=== PATIENT | female | born 1985 | race Caucasian/White ===

== ENCOUNTER 2017-09-13 21:13 | Observation (INO) ==
[2017-09-13 22:04] LABS: Bilirubin,Urine Negative (Negative); Blood,Urine Negative (Negative); Clarity,Urine Clear (Clear); Color,Urine Yellow (Yellow); Glucose,Urine (UA) Normal (Normal); Ketones,Urine Negative (Negative); Leukocyte Esterase,Urine Negative (Negative); Nitrite,Urine Negative (Negative); Protein,Urine Negative (Neg-Trace); Specific Gravity,Urine 1.015 (1.010-1.025); Urobilinogen,Urine Normal (Normal)
[2017-09-13 22:12] LABS: Amphetamine Screen,Urine Negative ng/mL (Cutoff=1000); Barbiturate Screen,Urine Negative ng/mL (Cutoff=200); Benzodiazepines Screen,Urine Negative ng/mL (Cutoff=200); Cannabinoid Screen,Urine Negative ng/mL (Cutoff = 50); Cocaine Screen,Urine Negative ng/mL (Cutoff= 300); Opiate Screen,Urine Negative ng/mL (Cutoff=300); Phencyclidine Screen,Urine Negative ng/mL (Cutoff=25)
[2017-09-13] MEDS ORDERED: Betamethasone Acet/SodPhos 6 MG/ML MDV IM SCH (22:15)
[2017-09-13 22:29] LABS: Basophils % 0.2 %; Eosinophils # 0.1 K/mcL (0.0-0.6); Hematocrit 35.8 % (35.3-44.9); Hemoglobin 12.3 g/dL (11.5-15.4); Immature Granulocytes % 0.9 % (0-4); Lymphocytes # 2.9 K/mcL (0.6-4.6); Lymphocytes % 22.9 %; Mean Corpuscular HGB Conc 34.4 g/dL (31.6-35.5); Mean Corpuscular Hemoglobin 30.3 pg (28.0-33.3); Mean Corpuscular Volume 88.2 fL (83.0-100.0); Mean Platelet Volume 11.2 fL (9.4-12.4); Monocytes # 0.9 K/mcL (0.0-1.3); Monocytes % 6.7 %; Neutrophils # 8.7 K/mcL (1.6-8.9); Platelet Count 223 K/mcL (140-400); Red Blood Count 4.06 M/mcL (3.82-4.97); Red Cell Distribution Width 13.2 % (11.5-14.5); Segmented Neutrophils % 68.3 %
--- NOTE | 2017-09-13 22:44 | OB/GYN Progress Note ---
Date of Encounter: 09/14/17 Time of Encounter: 22:38 - Assessment and Plan (1) 32 weeks gestation of Current Visit: Yes Status: Acute Continue PNC as scheduled with Dr. Dominique labor precautions given Discharge home (2) Hypertension affecting in third trimester Current Visit: Yes Status: Acute Elevated BP parameters given PIH work up WNL S/sx of pre-eclampsia discussed. Return next week for nurse visit for BP check. Subjective - Subjective Principal diagnosis: PIH eval Interval history: Ms. Alvarez is a 31-year-old at 32 weeks 0 days gestation who presents from home with c/o elevated BP from drug store machine and "not feeling right." She states her BP was 140/83 earlier in the day and then after she picked up her daughter it was 138/63. She reports good fm and denies ctx, lof, vb. Antepartum ROS: movement normal, other (feeling ill), no loss of fluid, no vaginal bleeding, no contractions Objective - Vital Signs Vital Signs: Intake and Output 09/13/17 09/13/17 09/13/17 07:59 15:59 23:59 Other: Weight 123.9 kg Patient Weight 09/13/17 23:59 Weight 123.9 kg - Exam FHR: category 1 Auscultation: bilateral: normal Abdomen: Present: normal appearance, soft, gravid Uterus: Present: normal, firm - Labs Labs: Abnormal lab results WBC 12.7 K/mcL (4.3-11.1) H 09/13/17 22:20
[2017-09-13 22:56] LABS: Alanine Aminotransferase 9 Units/L (7-52); Aspartate Amino Transferase 11 Units/L (13-39); BUN/Creatinine Ratio 19 (6-26); Blood Urea Nitrogen 11 mg/dL (6-20); Lactate Dehydrogenase 152 Units/L (140-271); eGFR For Non-African Americans > 60 (> 60)
[2017-09-14] LABS: Creatinine,Urine 24 mg/dL
== END 2017-09-14 00:22 | disposition home or self-care (01) ==
LOC: 1NENULAB
PROVIDERS: ADMIT Advanced Practice Midwife; ATTEND Advanced Practice Midwife

== ENCOUNTER 2017-09-14 23:42 | Observation (INO) ==
[2017-09-14] MEDS ORDERED: Betamethasone Acet/SodPhos 6 MG/ML MDV IM SCH (23:45)
--- NOTE | 2017-09-15 00:08 | OB/GYN Progress Note ---
Date of Encounter: 09/15/17 Time of Encounter: 00:07 - Assessment and Plan (1) 32 weeks gestation of Current Visit: No Status: Acute (2) Hypertension affecting in third trimester Current Visit: No Status: Acute Here for second betamethasone. Discharged home with PIH and labor precautions. Subjective - Subjective Interval history: Here for second betamethasone shot. Occasional cramping, denies vaginal bleeding or leaking of fluid Antepartum ROS: movement normal, contractions, no loss of fluid, no vaginal bleeding Objective - Exam FHR: auscultation normal
== END 2017-09-15 00:53 | disposition home or self-care (01) ==
LOC: 1NENULAB
PROVIDERS: ADMIT Obstetrics & Gynecology; ATTEND Obstetrics & Gynecology

== ENCOUNTER 2017-09-15 21:45 | Observation (INO) ==
--- NOTE | 2017-09-15 22:54 | OB/GYN Progress Note ---
Date of Encounter: 09/15/17 Time of Encounter: 22:44 - Assessment and Plan (1) NST (non-stress test) reactive Current Visit: Yes Status: Acute Reactive NST Discharge home with kick counts, PIH precautions, and Kick Counts Follow up in office with routine care and blood pressure check in office early next week. (2) 32 weeks gestation of Current Visit: Yes Status: Acute Subjective - Subjective Principal diagnosis: decreased movement Interval history: Ms Alvarez is a at 32 weeks and 2 days that presents to triage with c /o decreased movement. Her blood pressure was elevated per patient report as 140's/80's earlier today. She denies headache, vision changes, epigastric pain, and vaginal bleeding/cramping. She has been seen in triage daily for the past few days for elevated blood pressure and for steroid doses for long maturity. Otherwise, her has had a normal course. Antepartum ROS: no new complaints, no loss of fluid, no vaginal bleeding, no movement normal, no contractions Objective - Exam FHR: auscultation normal, category 1 FHR comments: Baseline 145. Auscultation: bilateral: normal Abdomen: Present: normal appearance, soft, gravid Uterus: Present: normal. Absent: firm, bogginess, tenderness
== END 2017-09-15 22:50 | disposition home or self-care (01) ==
LOC: 1NENULAB
PROVIDERS: ADMIT Advanced Practice Midwife; ATTEND Advanced Practice Midwife

== ENCOUNTER 2017-09-20 15:02 | Observation (INO) ==
[2017-09-20] MEDS ORDERED: Ringers Solution, Lactated 1,000 ML IVC ONE (15:24)
[2017-09-20] MEDS ORDERED: Ringers Solution, Lactated 1,000 ML IVC SCH (15:30)
[2017-09-20 15:45] LABS: Basophils % 0.1 %; Eosinophils # 0.1 K/mcL (0.0-0.6); Eosinophils % 0.6 %; Hematocrit 40.5 % (35.3-44.9); Hemoglobin 13.5 g/dL (11.5-15.4); Lymphocytes # 2.9 K/mcL (0.6-4.6); Mean Corpuscular HGB Conc 33.3 g/dL (31.6-35.5); Mean Corpuscular Hemoglobin 29.6 pg (28.0-33.3); Mean Corpuscular Volume 88.8 fL (83.0-100.0); Mean Platelet Volume 11.4 fL (9.4-12.4); Monocytes # 0.7 K/mcL (0.0-1.3); Neutrophils # 9.9 K/mcL (1.6-8.9); Platelet Count 237 K/mcL (140-400); Red Blood Count 4.56 M/mcL (3.82-4.97); Red Cell Distribution Width 13.1 % (11.5-14.5); Segmented Neutrophils % 72.3 %
[2017-09-20 16:05] LABS: Alanine Aminotransferase 10 Units/L (7-52); Amphetamine Screen,Urine Negative ng/mL (Cutoff=1000); Aspartate Amino Transferase 11 Units/L (13-39); BUN/Creatinine Ratio 23 (6-26); Barbiturate Screen,Urine Negative ng/mL (Cutoff=200); Benzodiazepines Screen,Urine Negative ng/mL (Cutoff=200); Blood Urea Nitrogen 12 mg/dL (6-20); Cannabinoid Screen,Urine Negative ng/mL (Cutoff = 50); Cocaine Screen,Urine Negative ng/mL (Cutoff= 300); Lactate Dehydrogenase 145 Units/L (140-271); Opiate Screen,Urine Negative ng/mL (Cutoff=300); Phencyclidine Screen,Urine Negative ng/mL (Cutoff=25); eGFR For Non-African Americans > 60 (> 60)
[2017-09-20 18:47] LABS: Bilirubin,Urine Negative (Negative); Blood,Urine Negative (Negative); Clarity,Urine Clear (Clear); Color,Urine Yellow (Yellow); Glucose,Urine (UA) Normal (Normal); Ketones,Urine Trace mg/dL (Negative); Leukocyte Esterase,Urine Negative (Negative); Nitrite,Urine Negative (Negative); PH,Urine 6.5 pH Units (5.0-8.0); Protein,Urine Negative (Neg-Trace); Specific Gravity,Urine 1.012 (1.010-1.025); Urobilinogen,Urine Normal (Normal)
--- NOTE | 2017-09-20 19:30 | OB/GYN Progress Note ---
Date of Encounter: 09/20/17 Time of Encounter: 19:22 - Assessment and Plan (1) 33 weeks gestation of Current Visit: Yes Status: Acute (2) Hypertension affecting in third trimester Current Visit: Yes Status: Acute Slightly elevated blood pressures on arrival to triage 140s over 80s to 90s, resolved to normotensive during stay last blood pressures 134/76, 124/74, 135/ 82. PIH labs negative. Discharged home with labor, PIH and when to return to triage precautions. Patient verbalizes understanding (3) uterine contractions Current Visit: Yes Status: Acute Patient states contraction improved with 1 L LR bolus, and oral hydration Cervix remains closed on serial cervical exams Subjective - Subjective Interval history: 33+0 weeks gestation presents to triage with complaints of elevated blood pressure on home check, and states on the way to triage started having occasional contractions.Reports good movement, denies vaginal bleeding, or leaking of fluid. Patient states headache this morning resolved, denies visual changes. Antepartum ROS: movement normal, contractions, no loss of fluid, no vaginal bleeding Objective - Exam FHR: auscultation normal FHR comments: Baseline 135 Auscultation: bilateral: normal Abdomen: Present: soft, gravid Cervical dilation: Closed/thick/high Comments: +1 DTRs negative clonus - Labs Labs: Abnormal lab results WBC 13.7 K/mcL (4.3-11.1) H 09/20/17 15:20 Neutrophils # 9.9 K/mcL (1.6-8.9) H 09/20/17 15:20 Creatinine 0.52 mg/dL (0.60-1.20) L 09/20/17 15:20 AST 11 Units/L (13-39) L 09/20/17 15:20 Urine Ketones Trace mg/dL (Negative) H 09/20/17 18:35
== END 2017-09-20 19:40 | disposition home or self-care (01) ==
LOC: 1NENULAB
PROVIDERS: ADMIT Obstetrics & Gynecology; ATTEND Obstetrics & Gynecology

== ENCOUNTER → 2017-10-17 13:55 | Observation (INO) ==
[2017-10-17 12:40] LABS: Basophils % 0.3 %; Eosinophils # 0.1 K/mcL (0.0-0.6); Eosinophils % 0.9 %; Hemoglobin 12.4 g/dL (11.5-15.4); Immature Granulocytes % 0.7 % (0-4); Lymphocytes # 1.7 K/mcL (0.6-4.6); Lymphocytes % 12.4 %; Mean Corpuscular HGB Conc 33.5 g/dL (31.6-35.5); Mean Corpuscular Hemoglobin 29.5 pg (28.0-33.3); Mean Corpuscular Volume 87.9 fL (83.0-100.0); Mean Platelet Volume 11.2 fL (9.4-12.4); Monocytes # 0.9 K/mcL (0.0-1.3); Monocytes % 6.6 %; Neutrophils # 10.7 K/mcL (1.6-8.9); Platelet Count 215 K/mcL (140-400); Red Blood Count 4.21 M/mcL (3.82-4.97); Red Cell Distribution Width 13.5 % (11.5-14.5); Segmented Neutrophils % 79.1 %
[2017-10-17 13:11] LABS: Amphetamine Screen,Urine Negative ng/mL (Cutoff=1000); Barbiturate Screen,Urine Negative ng/mL (Cutoff=200); Benzodiazepines Screen,Urine Negative ng/mL (Cutoff=200); Cannabinoid Screen,Urine Negative ng/mL (Cutoff = 50); Cocaine Screen,Urine Negative ng/mL (Cutoff= 300); Creatinine,Urine 24 mg/dL; Opiate Screen,Urine Negative ng/mL (Cutoff=300); Phencyclidine Screen,Urine Negative ng/mL (Cutoff=25); Protein/Creatinine Ratio,Urine 0.21 mg/mg (0.00-0.20)
[2017-10-17 13:12] LABS: Alanine Aminotransferase 10 Units/L (7-52); Aspartate Amino Transferase 13 Units/L (13-39); BUN/Creatinine Ratio 14 (6-26); Blood Urea Nitrogen 7 mg/dL (6-20); Lactate Dehydrogenase 170 Units/L (140-271); Uric Acid 3.8 mg/dL (2.3-7.6); eGFR For Non-African Americans > 60 (> 60)
--- NOTE | 2017-10-17 13:52 | OB/GYN Progress Note ---
Date of Encounter: 10/17/17 Time of Encounter: 13:45 - Assessment and Plan (1) 36 weeks gestation of Current Visit: Yes Status: Acute (2) Hypertension affecting in third trimester Current Visit: No Status: Acute BP's normal in triage with the exception of one systolic in the 150's. Labs WNL. POC discussed with Dr. Dominique. Subjective - Subjective Interval history: 32 year-old presents at 36w6d from office for PIH evaluation. Her blood pressure in the office was 158/96. She does also report a headache but feels it may be sinus related since she has had severe congestion since yesterday. SHe denies any vision changes or RUQ pain today. She denies LOF or vaginal bleeding. Good FM. Antepartum ROS: movement normal, no loss of fluid, no vaginal bleeding, no contractions Objective - Vital Signs Vital Signs: Intake and Output 10/16/17 10/17/17 10/17/17 23:59 07:59 15:59 Other: Weight 125.6 kg Patient Weight 10/17/17 23:59 Weight 125.6 kg - Exam FHR: category 1 FHR comments: 135 BMP, reactive NST Abdomen: Present: soft, gravid Uterus: Present: normal Comments: no clonus - Labs Labs: Abnormal lab results WBC 13.5 K/mcL (4.3-11.1) H 10/17/17 12:15 Neutrophils # 10.7 K/mcL (1.6-8.9) H 10/17/17 12:15 Creatinine 0.50 mg/dL (0.60-1.20) L 10/17/17 12:15 Protein/Creatinin Ratio 0.21 mg/mg (0.00-0.20) H 10/17/17 12:03
== END | disposition home or self-care (01) ==
LOC: 1NENULAB
PROVIDERS: ADMIT Obstetrics & Gynecology; ATTEND Obstetrics & Gynecology

== ENCOUNTER → 2017-10-24 18:01 | Observation (INO) ==
[2017-10-24 16:48] LABS: Basophils % 0.3 %; Eosinophils # 0.1 K/mcL (0.0-0.6); Eosinophils % 0.7 %; Hematocrit 37.5 % (35.3-44.9); Hemoglobin 12.7 g/dL (11.5-15.4); Immature Granulocytes % 0.8 % (0-4); Lymphocytes # 2.3 K/mcL (0.6-4.6); Lymphocytes % 20.4 %; Mean Corpuscular HGB Conc 33.9 g/dL (31.6-35.5); Mean Corpuscular Volume 88.4 fL (83.0-100.0); Mean Platelet Volume 11.3 fL (9.4-12.4); Monocytes # 0.7 K/mcL (0.0-1.3); Monocytes % 6.5 %; Neutrophils # 7.9 K/mcL (1.6-8.9); Platelet Count 217 K/mcL (140-400); Red Blood Count 4.24 M/mcL (3.82-4.97); Red Cell Distribution Width 13.1 % (11.5-14.5); Segmented Neutrophils % 71.3 %
[2017-10-24 16:56] LABS: Amphetamine Screen,Urine Negative ng/mL (Cutoff=1000); Barbiturate Screen,Urine Negative ng/mL (Cutoff=200); Benzodiazepines Screen,Urine Negative ng/mL (Cutoff=200); Cannabinoid Screen,Urine Negative ng/mL (Cutoff = 50); Cocaine Screen,Urine Negative ng/mL (Cutoff= 300); Opiate Screen,Urine Negative ng/mL (Cutoff=300); Phencyclidine Screen,Urine Negative ng/mL (Cutoff=25); Protein/Creatinine Ratio,Urine 0.16 mg/mg (0.00-0.20)
[2017-10-24 17:09] LABS: Alanine Aminotransferase 11 Units/L (7-52); Aspartate Amino Transferase 13 Units/L (13-39); BUN/Creatinine Ratio 15 (6-26); Blood Urea Nitrogen 7 mg/dL (6-20); Lactate Dehydrogenase 159 Units/L (140-271); eGFR For Non-African Americans > 60 (> 60)
--- NOTE | 2017-10-24 17:53 | OB/GYN Progress Note ---
Date of Encounter: 10/24/17 Time of Encounter: 17:51 - Assessment and Plan (1) 37 or more weeks gestation of Current Visit: No Status: Acute (2) Gestational hypertension Current Visit: No Status: Acute BP's mild range. PIH labs WNL. Discharge home with precautions. Pt to follow-up on Sunday. POC per Dr. Dominique. Qualifiers: Trimester: third trimester Qualified Code(s): O13.3 - Gestational [ -induced] hypertension without significant proteinuria, third trimester (3) NST (non-stress test) reactive Current Visit: No Status: Acute Subjective - Subjective Interval history: Pt sent from office at 37w6d for BP 152/94. This is also complicated by polyhydramnios with recent TEODORA 24.2 and LGA with fundal height 48cm. She denies s/sx preeclampsia today. Good FM. No leaking or bleeding. Antepartum ROS: movement normal, no loss of fluid, no vaginal bleeding, no contractions Objective - Vital Signs Vital Signs: Intake and Output 10/24/17 10/24/17 10/24/17 07:59 15:59 23:59 Other: Weight 124 kg Patient Weight 10/24/17 23:59 Weight 124 kg - Exam FHR: category 1 FHR comments: 140 reactive NST Auscultation: bilateral: normal Abdomen: Present: soft, gravid Comments: normal reflexes, no clonus - Labs Labs: Abnormal lab results Creatinine 0.47 mg/dL (0.60-1.20) L 10/24/17 16:34
== END | disposition home or self-care (01) ==
LOC: 1NENULAB
PROVIDERS: ADMIT Registered Nurse; ATTEND Registered Nurse

== ENCOUNTER → 2017-10-29 18:37 | Observation (INO) ==
--- NOTE | 2017-10-29 17:10 | OB/GYN History & Physical ---
Date of Encounter: 10/29/17 Time of Encounter: 17:00 Assessment and Plan (1) Term Current visit: No Status: Acute 32yo at 38+4wks GA who presents from office for r/o PreE 1. R/o PReE - BPs: 140s/80-90s - MACKEY resolved spontaneously - denies RUQP, persistent MACKEY, blurry vision, GERD - labs: WNL, UPC 0.17 - ruled out for PreE, given precaution(s) 2. MWB - denies VB/LOF/contraction(s) - UTD PNC with [facility] - vertex presentation 3. FWB - RNST for GA Dispo: DC to home with PReE precaution(s). Patient not meeting criteria for PreE at this time. Recommednation for patient to take home BP and to have low threshold with persistent symptoms. MD KINGA History of Present Illness Chief complaint: R/o PreE HPI: Ms. Alvarez is a 32 year old female at 38+4wks GA who presents from the clinic for r/o PreE. Patient with BPs ranging between 140-150s/90s. Initially presented with MACKEY (mild) that has since spontaneously resolved. SHe reports to often have MACKEY 2/2 hx of sinus congestion and allergies. Denies RUQ discomfort, no blurry vision. Obstetrically, she is without complaints. She denies vaginal bleeding, LOF, contraction(s). UTD PNC with Dr. Dominique (clinic). Hx of PreE in G1, required induction a 37+6wks, unsure if required IV Magnesium. Denies hx of cHTN, not currently on meds. Past Med Surg Social Fam HX - Past Medical History Source: patient Medical history: no medical history Psychiatric history: no psych history - Past Surgical History Surgical History: other Additional surgical history: Tonsilectomy - Social History Smoking Status: Never smoker Smokeless Tobacco Status: No Alcohol use: none Drug use: none - Family History Mother Adopted: No Living Status: Still Living Hx Family Cardiac Disorders: No Hx Family Respiratory Disorders: No Hx Family Cancer: No Hx Family GI Disorders: No Hx Family Genitourinary Disorders: No Hx Family Endocrine Disorder: No Hx Family Musculoskeletal Disorders: No Hx Family Neuromuscular Disorders: No Hx Family Neurologic Disorders: No Hx Family HEENT Disorders: No Hx Family Autoimmune Disorders: No Hx Family Reproductive Disorders: No Hx Family Psychosocial Disorders: No Hx Family Medical Disorders: No Obstetrical History - Pregnancies : 2 Para: 1 Term: 0 : 0 Livin - History/Complications History/Complications: Hx of PReE in G1 - required early term induction at 37+6wks GA Medications and Allergies Vits #93/Iron Fum/FA [ Formula Tablet] 1 tab PO DAILY 03/04/15 [History] SUMAtriptan succinate [Imitrex] 50 mg PO NOW 03/04/15 [History] Aspirin [Lo-Dose Aspirin EC] 1 tab PO DAILY 09/13/17 [History] 3 Allergy/AdvReac Type Severity Reaction Status Date / Time No Known Allergies Allergy Verified 09/13/17 21:31 Review of System OB - Cardiovascular Cardiovascular: as per HPI - Gastrointestinal Gastrointestinal: as per HPI - Genitourinary Genitourinary: as per HPI Exam - Constitutional Constitutional: well developed, well nourished - Neck Neck exam: full ROM - Abdomen Abdomen: Present: gravid, non tender - Extremities Extremities exam: full ROM, radial pulses palpable and symmetrical Deep Tendon Reflex Grade: 3+ Normal But Brisk Results Result Diagrams: 10/29/17 17:02 10/29/17 17:02 All other labs normal.
[2017-10-29 17:38] LABS: Basophils % 0.3 %; Eosinophils # 0.1 K/mcL (0.0-0.6); Eosinophils % 0.5 %; Hematocrit 39.5 % (35.3-44.9); Hemoglobin 13.5 g/dL (11.5-15.4); Immature Granulocytes % 0.6 % (0-4); Lymphocytes # 2.1 K/mcL (0.6-4.6); Lymphocytes % 19.9 %; Mean Corpuscular HGB Conc 34.2 g/dL (31.6-35.5); Mean Corpuscular Hemoglobin 30.1 pg (28.0-33.3); Mean Corpuscular Volume 88.2 fL (83.0-100.0); Mean Platelet Volume 11.6 fL (9.4-12.4); Monocytes # 0.6 K/mcL (0.0-1.3); Monocytes % 5.5 %; Neutrophils # 7.7 K/mcL (1.6-8.9); Platelet Count 237 K/mcL (140-400); Red Blood Count 4.48 M/mcL (3.82-4.97); Segmented Neutrophils % 73.2 %
[2017-10-29 17:49] LABS: Amphetamine Screen,Urine Negative ng/mL (Cutoff=1000); Barbiturate Screen,Urine Negative ng/mL (Cutoff=200); Benzodiazepines Screen,Urine Negative ng/mL (Cutoff=200); Cannabinoid Screen,Urine Negative ng/mL (Cutoff = 50); Cocaine Screen,Urine Negative ng/mL (Cutoff= 300); Opiate Screen,Urine Negative ng/mL (Cutoff=300); Phencyclidine Screen,Urine Negative ng/mL (Cutoff=25); Protein/Creatinine Ratio,Urine 0.17 mg/mg (0.00-0.20)
[2017-10-29 17:57] LABS: Alanine Aminotransferase 11 Units/L (7-52); Aspartate Amino Transferase 15 Units/L (13-39); BUN/Creatinine Ratio 19 (6-26); Blood Urea Nitrogen 10 mg/dL (6-20); Lactate Dehydrogenase 170 Units/L (140-271); Uric Acid 4.5 mg/dL (2.3-7.6); eGFR For Non-African Americans > 60 (> 60)
== END | disposition home or self-care (01) ==
LOC: 1NENULAB
PROVIDERS: ADMIT Advanced Practice Midwife; ATTEND Advanced Practice Midwife

== ENCOUNTER 2017-11-02 06:00 | Inpatient (IN) ==
[2017-11-02] MEDS ORDERED: miSOPROStol 25 MCG TABLET PO PRN (06:21)
[2017-11-02] MEDS ORDERED: Famotidine 20 MG/2 ML VIAL IVP PRN ×2 (06:21→19:58)
[2017-11-02] MEDS ORDERED: Naloxone 0.4 MG/ML INJ IVP PRN (06:21)
[2017-11-02] MEDS ORDERED: *HR* Nalbuphine 10 MG/ML AMPUL IVP PRN (06:21)
[2017-11-02] MEDS ORDERED: Ondansetron 4 MG/2 ML VIAL IVP PRN (06:21)
[2017-11-02] MEDS ORDERED: Metoclopramide 10 MG/2 ML VIAL IVP PRN (06:21)
[2017-11-02] MEDS ORDERED: D5% in 0.45% NACL 1,000 ML IVC SCH ×2 (06:30→19:58)
[2017-11-02 07:01] LABS: Basophils % 0.3 %; Eosinophils # 0.1 K/mcL (0.0-0.6); Eosinophils % 1.2 %; Hematocrit 35.8 % (35.3-44.9); Immature Granulocytes % 0.6 % (0-4); Lymphocytes # 2.3 K/mcL (0.6-4.6); Lymphocytes % 20.6 %; Mean Corpuscular HGB Conc 33.5 g/dL (31.6-35.5); Mean Corpuscular Hemoglobin 29.1 pg (28.0-33.3); Mean Corpuscular Volume 86.7 fL (83.0-100.0); Mean Platelet Volume 11.9 fL (9.4-12.4); Monocytes # 0.6 K/mcL (0.0-1.3); Monocytes % 5.4 %; Platelet Count 212 K/mcL (140-400); Red Blood Count 4.13 M/mcL (3.82-4.97); Red Cell Distribution Width 13.2 % (11.5-14.5); Segmented Neutrophils % 71.9 %
[2017-11-02 07:20] LABS: Alanine Aminotransferase 10 Units/L (7-52); Aspartate Amino Transferase 13 Units/L (13-39); BUN/Creatinine Ratio 18 (6-26); Blood Urea Nitrogen 10 mg/dL (6-20); Lactate Dehydrogenase 160 Units/L (140-271); Uric Acid 4.6 mg/dL (2.3-7.6); eGFR For Non-African Americans > 60 (> 60)
[2017-11-02 07:23] LABS: Amphetamine Screen,Urine Negative ng/mL (Cutoff=1000); Barbiturate Screen,Urine Negative ng/mL (Cutoff=200); Benzodiazepines Screen,Urine Negative ng/mL (Cutoff=200); Cannabinoid Screen,Urine Negative ng/mL (Cutoff = 50); Cocaine Screen,Urine Negative ng/mL (Cutoff= 300); Opiate Screen,Urine Negative ng/mL (Cutoff=300); Phencyclidine Screen,Urine Negative ng/mL (Cutoff=25)
[2017-11-02] MEDS ORDERED: Epidural Premix (fent/bupiv) 110 ML EP SCH (08:45)
[2017-11-02] MEDS ORDERED: Ringers Solution, Lactated 500 ML IVC ONE (08:45)
[2017-11-02] MEDS ORDERED: EPHEDrine 50 MG/ML VIAL IVP PRN (08:45)
--- NOTE | 2017-11-02 12:21 | OB/GYN History & Physical ---
Date of Encounter: 11/02/17 Time of Encounter: 12:19 Assessment and Plan (1) 39 weeks gestation of Current visit: Yes Status: Acute (2) Intrauterine Current visit: Yes Status: Acute Admit to L&D for induction of labor 50 g Cytotec by mouth 1 Labs: CBC and clot to hold Continuous electronic monitoring Pain management plan is likely epidural Anticipate vaginal delivery Dr. Nuñez is OB online affiliate marketing manager and is available as needed (3) Intact amniotic membranes Current visit: Yes Status: Acute Qualifiers: Trimester: third trimester Qualified Code(s): Z34.93 - Encounter for supervision of normal , unspecified, third trimester History of Present Illness Chief complaint: IOL HPI: Ms. Alvarez is a 32 year old female at 39 weeks 1 days gestation with an estimated date of of 11/08/17 dated by early ultrasound. She presents today for elective induction of labor. She endorses good movement and denies leakage of fluid, vaginal bleeding, contractions. She has been seen by Dr. Dominique throughout this . Her has been complicated by PUPPS. records are available electronically and have been reviewed. Labs: A+ GBS negative Hep B negative HIV negative T. Palladium negative GC/CL negative Varicella immune Rubella immune Past Med Surg Social Fam HX - Past Medical History Medical history: no medical history Psychiatric history: no psych history - Past Surgical History Surgical History: other Additional surgical history: Tonsilectomy - Social History Smoking Status: Never smoker Smokeless Tobacco Status: No Alcohol use: none Drug use: none - Family History Mother Adopted: No Living Status: Still Living Hx Family Cardiac Disorders: No Hx Family Respiratory Disorders: No Hx Family Cancer: No Hx Family GI Disorders: No Hx Family Genitourinary Disorders: No Hx Family Endocrine Disorder: No Hx Family Musculoskeletal Disorders: No Hx Family Neuromuscular Disorders: No Hx Family Neurologic Disorders: No Hx Family HEENT Disorders: No Hx Family Autoimmune Disorders: No Hx Family Reproductive Disorders: No Hx Family Psychosocial Disorders: No Hx Family Medical Disorders: No Obstetrical History - Pregnancies : 2 Para: 1 Term: 1 (16-16 38w , normal spontaneous vaginal delivery (), PIH, female 7lbs 14oz "Joon". ) : 0 Ab's: 0 Livin Medications and Allergies Vits #93/Iron Fum/FA [ Formula Tablet] 1 tab PO DAILY 03/04/15 [History] SUMAtriptan succinate [Imitrex] 50 mg PO NOW 03/04/15 [History] Aspirin [Lo-Dose Aspirin EC] 1 tab PO DAILY 09/13/17 [History] 3 Allergy/AdvReac Type Severity Reaction Status Date / Time No Known Allergies Allergy Verified 11/02/17 06:34 Review of System OB All systems PM: reviewed and no additional remarkable complaints except as stated Exam - Constitutional Constitutional: well developed, well nourished, no acute distress, average body habitus, morbidly obese - HEENT HEENT: PERRL, Normocephaly, Mucus Membranes Moist - Neck Neck exam: full ROM - Lungs Respiratory exam: CTAB - Cardiovascular Cardiovascular exam: RRR, +S1, +S2 - Breasts Breast: bilateral: normal - Abdomen Abdomen: Present: bowel sounds normal, gravid, non tender - Extremities Extremities exam: normal capillary refill, normal inspection, pedal edema, radial pulses palpable and symmetrical - Vulva Vulva: bilateral: normal - Vagina Vagina: Present: normal moisture - Cervix Dilation: 3 Effacement: 70 Station: -2 - Uterus Uterus exam: Present: normal size, normal contour - Adnexa Adnexa: bilateral: normal - Anus/Rectum Anus/Rectum: Present: normal perianal skin Results Result Diagrams: 11/02/17 06:35 11/02/17 06:35 Abnormal lab results Creatinine 0.57 mg/dL (0.60-1.20) L 11/02/17 06:35 All other labs normal. - VTE Reasons for not Prescribing Prophylaxis: Treatment not Indicated - Low risk for VTE
[2017-11-02] MEDS ORDERED: Oxytocin 20 units/ LR 1000 mL 20 UNIT/1,000 ML BAG IVC SCH ×2 (13:45→19:58)
--- NOTE | 2017-11-02 14:20 | OB Labor Progress Note ---
Date of Encounter: 11/02/17 Time of Encounter: 11:15 Labor Progress Note - Subjective Subjective: Pt comfortable with contractions - Cervix Cervix: 3/70/-2 - Heart Tones Heart Tones: FHR Category I - [place]: Contractions rare - Interventions Interventions: SVE AROM - small amount of clear fluid - Plan Plan: Continue active management Frequent position changes Anticipate pitocin use Anticipate
[2017-11-02] MEDS ORDERED: Acetaminophen 325 MG TABLET PO PRN ×2 (14:46→19:58)
--- NOTE | 2017-11-02 15:45 | Anesthesia Evaluation PreOp ---
Date of Encounter: 11/02/17 Time of Encounter: 15:43 - Past History Planned Operation: KARLA Cardiac History: Denies any Significant Hx Pulmonary History: Asthma WIRE STOCKKEEPER History: Denies Any Significant HX Other Medical History: Denies Any Significant HX Anesthesia History: No Prior Anesthetic Complications, Past Anesthesia : Yes Alcohol Use: none Drug use: none Medications and Allergies Vits #93/Iron Fum/FA [ Formula Tablet] 1 tab PO DAILY 03/04/15 [History] SUMAtriptan succinate [Imitrex] 50 mg PO NOW 03/04/15 [History] Aspirin [Lo-Dose Aspirin EC] 1 tab PO DAILY 09/13/17 [History] 3 Allergy/AdvReac Type Severity Reaction Status Date / Time No Known Allergies Allergy Verified 11/02/17 06:34 - Meds/Allergy Pre-op Review Medications Reviewed: Yes Allergies Reviewed: Yes Beta Blockers on Current Med List: No Anesthesia Results - Labs 11/02/17 06:35 11/02/17 06:35 Anesthesia Exam O2 Sat Height 1.73 m Weight 127.459 kg NPO (# of Hours): 4 Pain Scale: 5 Pain Scale Used: Numeric (1 - 10) - HEENT Pupil (Motor): Pupils equal Mallampati: II Teeth: Normal Oral Opening: Greater than 3 - WIRE STOCKKEEPER LOC: Oriented WIRE STOCKKEEPER Motor: Normal RUE, Normal LUE, Normal RLE, Normal LLE, Normal Face WIRE STOCKKEEPER Sensory: Normal: RUE, LUE, RLE, LLE, Face - Cardiac Rhythm: Regular Murmur: None JVD: No Carotid Bruit: No - Pulmonary Breath Sounds: bilateral Clear Respiratory Effort: Symmetrical Anesthesia Assess/Plan ASA Score: 3 (BMI 42) Modified [place] Scale for Level of Consciousness: Cooperative, oriented, and tranquil Anesthetic Plan: General (plan b), Regional (plan a) Autologous Blood: Yes Monitoring Plan: Standard Monitors Recovery Plan: PACU
[2017-11-02] MEDS ORDERED: Lidocaine -MPF 1% 5 ML AMPUL ONE (17:03)
--- NOTE | 2017-11-02 17:32 | Anesthesia Procedures ---
Date of Encounter: 11/02/17 Time of Encounter: 17:30 Procedures: Anesthesia - Epidural/Spinal Patient ID/Chart reviewed: Yes Patient examined: Yes OB Eval: Gestational age: 39.1 OB Eval: : 2 OB Eval: Hx Para: 1 OB Eval: Dilated at (cm): 6 OB Eval: Contractions: Non-stressed pattern Consent Obtained: Yes Supplemental Oxygen: None/Room Air Site Prep: Aseptic Technique, Sterile prep and drape, Povidone-Iodine 1% Patient position: upright Local Anesthetic: Lidocaine 1% Amount of Local Anesthetic used: 3 Touhy Needle Gauge: 18 Touhy Needle Depth (cm): 10 Catheter Depth at Skin (cm): 20 Test Dose (1.5% Lido + Epi): Volume given (mls): 5 Test Dose Result: Negative Loading Dose: Other: 10mls of epidural pharm bag premix solution Loading Dose Administered: Thru Catheter Infusion Med: 0.125% Bupivacaine w/ 2 mcg/ml Fentanyl Infusion Rate (mls/hr): 18 ([id number]) Catheter Secured in Place: Tegaderm, Tape Interspace Used: L3-L4 Loss of Resistance (LAWANDA): Yes Blood: No CSF: No Paresthesia: No Procedure: pt tolerated procedure well. no complications. vss. fhr stable.
[2017-11-02] MEDS: Ringers Solution, Lactated 1,000 ML IVC SCH ×2 (17:38→17:41)
[2017-11-02] MEDS ORDERED: Benzocaine/Menthol 56 GM AEROSOL SPRAY TP PRN (19:58)
[2017-11-02] MEDS ORDERED: Lanolin 7 G OINT...G. TP PRN (19:58)
[2017-11-02] MEDS ORDERED: SUMAtriptan succinate 50 MG TABLET PO SCH (19:58)
--- NOTE | 2017-11-02 20:21 | OB/GYN Procedure Note ---
Delivery - Delivery Date: 11/02/17 Provider: Doreen Hoskins Intrapartum events: none Delivery induction: misoprostol Delivery augmentation: rupture of membranes, pitocin Delivery monitor: external FHT, external uterine Anesthesia: epidural Quantitated Blood Loss: 200 - Infant (s) Infant A Delivery Date: 11/02/17 Infant Delivery Time: 19:11 Presentation: vertex Position: KENDAL Route of delivery: Gender: Male Viability: Viable Pounds: 10 Ounces: 8 Weight Gram: 4.775 kg at 1 minute: 7 at 5 mins: 8 Shoulder Dystocia: encountered Shoulder Dystocia Maneuvers: Jennifer maneuver, suprapubic pressure Shoulder dystocia time elapsed: 30 seconds Specimens collected: cord blood Placenta: spontaneous Cord: 3 umbilical vessels - Repair Episiotomy: none Laceration Description: None - Complications Delivery complications: none Delivery comments: This is a 32-year-old G2 now P2 who is admitted for elective induction of labor. She progressed with misoprostol induction and Pitocin and AROM augmentation to the second stage of labor. She pushed for about 20 minutes. She delivered a viable male , KENDAL over an intact perineum. The mouth and nares were bulb suctioned after the infant was placed on maternal abdomen and the cord was milked. No nuchal cord was identified. A 30 second shoulder dystocia was encountered. It was relieved with Jennifer maneuver and suprapubic pressure. Dr. Galaviz was called to the room when shoulder dystocia was identified. The infant was delivered by the time he arrived. scores were 7 at 1 minute and 8 at 5 minutes. The placenta delivered spontaneously, intact, with a three-vessel cord. Inspection revealed no perineal, sidewall, or cervical lacerations. The uterus was firm with no active bleeding. EBL was 200 mL. Placenta and umbilical artery blood gases were not sent. Mom and baby are skin to skin following delivery. - Disposition Mom disposition: stable in LDR [place] disposition: stable in LDR
[2017-11-03] MEDS: Ibuprofen 600 MG TABLET PO PRN ×2 (07:13→15:27)
[2017-11-03 07:25] LABS: Basophils % 0.3 %; Eosinophils # 0.1 K/mcL (0.0-0.6); Eosinophils % 0.5 %; Hematocrit 37.4 % (35.3-44.9); Hemoglobin 12.2 g/dL (11.5-15.4); Immature Granulocytes % 0.5 % (0-4); Lymphocytes # 2.7 K/mcL (0.6-4.6); Lymphocytes % 20.5 %; Mean Corpuscular HGB Conc 32.6 g/dL (31.6-35.5); Mean Corpuscular Hemoglobin 29.3 pg (28.0-33.3); Mean Corpuscular Volume 89.7 fL (83.0-100.0); Mean Platelet Volume 11.7 fL (9.4-12.4); Monocytes # 0.9 K/mcL (0.0-1.3); Monocytes % 6.5 %; Neutrophils # 9.4 K/mcL (1.6-8.9); Platelet Count 209 K/mcL (140-400); Red Blood Count 4.17 M/mcL (3.82-4.97); Red Cell Distribution Width 13.1 % (11.5-14.5); Segmented Neutrophils % 71.7 %
[2017-11-03] MEDS ORDERED: Prenatal Vit/FA 1 EACH TABLET PO SCH (09:00)
[2017-11-03] MEDS ORDERED: IRON FUM PO SCH (09:00)
[2017-11-03] MEDS ORDERED: [UNRECOGNIZED DRUG - OTHER] PO SCH (09:00)
[2017-11-03] MEDS ORDERED: Aspirin Enteric Coated 81 MG Tablet PO SCH (09:00)
[2017-11-03] MEDS ORDERED: PRENATAL VITS PO SCH (09:00)
--- NOTE | 2017-11-03 11:40 | Discharge Summary ---
Date of Encounter: 11/03/17 Time of Encounter: 11:37 - Discharge Diagnosis (1) Vaginal delivery Priority: Primary Status: Acute Comments: Continue routine care discharge home today follow up with Dr. Dominique in 4-6 weeks (2) Breast feeding status of mother Priority: Secondary Status: Acute Comments: support prn - Discharge Medications Prescriptions: Ibuprofen [Motrin] 600 mg PO Q6HR PRN #60 tablet PRN Reason: Pain Breast Pump [BREAST PUMP] 1 each .ROUTE AD #1 each Home Medications: SUMAtriptan succinate [Imitrex] 50 mg PO NOW 03/04/15 [History] Aspirin [Lo-Dose Aspirin EC] 1 tab PO DAILY 09/13/17 [History] Benzocaine/Menthol [place] [Dermoplast [place]] 1 appl TP QID PRN aerosol 11/03/17 [Rx] Breast Pump [BREAST PUMP] 1 each .ROUTE AD #1 each 11/03/17 [Rx] Docusate [Colace] 100 mg PO BID capsule 11/03/17 [Rx] Ibuprofen [Motrin] 600 mg PO Q6HR PRN #60 tablet 11/03/17 [Rx] Lanolin [Lansinoh] 1 appl TP QID PRN oint...g. 11/03/17 [Rx] Vit/FA 1 each PO DAILY tablet 11/03/17 [Rx] Allergies/Adverse Reactions: 3 Allergy/AdvReac Type Severity Reaction Status Date / Time No Known Allergies Allergy Verified 11/02/17 06:34 Data Procedures and tests throughout hospitalization: Laboratory Tests 11/02/17 11/02/17 11/02/17 06:35 06:35 06:35 WBC 11.1 RBC 4.13 Hgb 12.0 D Hct 35.8 MCV 86.7 MCH 29.1 MCHC 33.5 RDW 13.2 Plt Count 212 MPV 11.9 Immature Gran % 0.6 Seg Neutrophils % 71.9 Lymphocytes % 20.6 Monocytes % 5.4 Eosinophils % 1.2 Basophils % 0.3 Neutrophils # 8.0 Lymphocytes # 2.3 Monocytes # 0.6 Eosinophils # 0.1 Basophils # 0.0 BUN 10 Creatinine 0.57 L Est GFR ( Amer) > 60 Est GFR (Non-Af Amer) > 60 BUN/Creatinine Ratio 18 Uric Acid 4.6 AST 13 ALT 10 Lactate Dehydrogenase 160 Urine Opiates Screen Negative Ur Barbiturates Screen Negative Ur Phencyclidine Scrn Negative Ur Amphetamines Screen Negative U Benzodiazepines Scrn Negative Urine Cocaine Screen Negative U Marijuana (THC) Screen Negative Ur Drug Screen Interp See Below 11/03/17 07:01 WBC 13.2 H RBC 4.17 Hgb 12.2 Hct 37.4 MCV 89.7 MCH 29.3 MCHC 32.6 RDW 13.1 Plt Count 209 MPV 11.7 Immature Gran % 0.5 Seg Neutrophils % 71.7 Lymphocytes % 20.5 Monocytes % 6.5 Eosinophils % 0.5 Basophils % 0.3 Neutrophils # 9.4 H Lymphocytes # 2.7 Monocytes # 0.9 Eosinophils # 0.1 Basophils # 0.0 BUN Creatinine Est GFR ( Amer) Est GFR (Non-Af Amer) BUN/Creatinine Ratio Uric Acid AST ALT Lactate Dehydrogenase Urine Opiates Screen Ur Barbiturates Screen Ur Phencyclidine Scrn Ur Amphetamines Screen U Benzodiazepines Scrn Urine Cocaine Screen U Marijuana (THC) Screen Ur Drug Screen Interp Labs on day of discharge: Labs from last 24 hours 11/03/17 07:01 WBC 13.2 H RBC 4.17 Hgb 12.2 Hct 37.4 MCV 89.7 MCH 29.3 MCHC 32.6 RDW 13.1 Plt Count 209 MPV 11.7 Immature Gran % 0.5 Seg Neutrophils % 71.7 Lymphocytes % 20.5 Monocytes % 6.5 Eosinophils % 0.5 Basophils % 0.3 Neutrophils # 9.4 H Lymphocytes # 2.7 Monocytes # 0.9 Eosinophils # 0.1 Basophils # 0.0 Date of admission: 11/02/17 06:10 Primary care physician: Nini Diaz CNP Consults: 11/02/17 19:58 Consult to Refuse Driver [CONS] Routine Comment: Vaginal delivery, consult needed Discharging clinician: Tali Whiteside Anticipated date of discharge: 11/03/17 - Patient Status Disposition: Home, Self-Care Condition: Good Functional capacity at discharge: independent ambulation - Discharge Instructions Follow Up With: Nini Diaz CNP [Primary Care Provider] - Kalpana Dominique MD [Partnered Physician] - - Diet and Activity Activity: increase activity as tolerated Diet: regular diet Hospital Course Reason for admission: induction of labor Delivery: Episiotomy: none Laceration: none Other procedures: none complications: none Discharge diagnosis: IUP at term delivered [place] baby: male (breast feeding) Time Attestation: Total time spent providing and/or coordinating discharge services: Time Spent: Less than 30 minutes Exam - Constitutional Vitals: Temp Pulse Resp BP Pulse Ox 97.5 F L 72 12 118/71 98 11/03/17 07:50 11/03/17 07:50 11/03/17 07:50 11/03/17 07:50 11/03/17 07:50 General appearance IM: A&O X 3, pleasant, answers questions appropriately - Respiratory Respiratory exam: Present: CTAB - Cardiovascular Cardiovascular exam IM: Present: RRR, +S1, +S2 - GI/Abdominal GI/Abdominal exam IM: normal bowel sounds - Uterine Tone: Firm Uterus Position: At Umbilicus, Midline - Extremities Exam Extremities exam IM: Present: full ROM, normal capillary refill, normal inspection - Neurological Exam Neurological exam: alert, oriented X3, reflexes normal
[2017-11-03 23:18] VITALS: BP 128/74
== END 2017-11-03 22:00 | disposition home or self-care (01) | DRG 775 ==
LOC: 1NENULAB 06:10 → 1NENUOBS 22:01
PROVIDERS: ADMIT Advanced Practice Midwife; ATTEND Advanced Practice Midwife

== ENCOUNTER 2021-10-30 06:05 | Inpatient (IN) ==
[2021-10-30] MEDS ORDERED: Ondansetron 4 MG/2 ML VIAL IVP PRN (06:15)
[2021-10-30] MEDS ORDERED: Famotidine 20 MG/2 ML VIAL IVP PRN (06:15)
[2021-10-30] MEDS ORDERED: miSOPROStoL 25 MCG TABLET PO PRN (06:15)
[2021-10-30] MEDS ORDERED: Naloxone 0.4 MG/ML INJ IVP PRN (06:15)
[2021-10-30] MEDS ORDERED: Metoclopramide 10 MG/2 ML VIAL IVP PRN (06:15)
[2021-10-30] MEDS ORDERED: Ringers Solution, Lactated 1,000 ML IVC SCH (06:15)
[2021-10-30] MEDS ORDERED: *HR* Nalbuphine 10 MG/ML AMPUL IV PRN (06:15)
[2021-10-30] MEDS ORDERED: Azithromycin 500 MG in 0.9 % Sodium Chloride 250 ML IVPB PRN (06:15)
[2021-10-30] MEDS ORDERED: D5% in Lactated Ringers 1,000 ML IVC SCH (06:15)
[2021-10-30] MEDS ORDERED: EPHEDrine 50 MG/ML VIAL IVP PRN (06:21)
[2021-10-30] MEDS ORDERED: Epidural Premix (fent/bupiv) 110 ML EP SCH (06:30)
[2021-10-30 06:47] LABS: Basophils % 0.4 %; Eosinophils % 0.5 %; Hematocrit 37.7 % (35.3-44.9); Hemoglobin 12.4 g/dL (11.5-15.4); Immature Granulocytes % 0.3 % (0-4); Lymphocytes % 25.7 %; Mean Corpuscular HGB Conc 32.9 g/dL (31.6-35.5); Mean Corpuscular Hemoglobin 30.2 pg (28.0-33.3); Mean Corpuscular Volume 91.7 fL (83.0-100.0); Mean Platelet Volume 11.6 fL (9.4-12.4); Monocytes # 0.3 K/mcL (0.0-1.3); Monocytes % 3.8 %; Neutrophils # 5.5 K/mcL (1.6-8.9); Platelet Count 206 K/mcL (140-400); Red Blood Count 4.11 M/mcL (3.82-4.97); Red Cell Distribution Width 13.3 % (11.5-14.5); Segmented Neutrophils % 69.3 %; White Blood Count 7.9 K/mcL (4.3-11.1)
[2021-10-30] MEDS ORDERED: *HR* FentaNYL (PF) 100 MCG/2 ML VIAL EP ONE (07:49)
[2021-10-30] MEDS ORDERED: Ropivacaine/PF 0.2% 20 ML VIAL EP ONE (07:49)
[2021-10-30 08:44] LABS: Amphetamine Screen,Urine Negative ng/mL (Cutoff=1000); Barbiturate Screen,Urine Negative ng/mL (Cutoff=200); Benzodiazepines Screen,Urine Negative ng/mL (Cutoff=200); Cannabinoid Screen,Urine Negative ng/mL (Cutoff = 50); Cocaine Screen,Urine Negative ng/mL (Cutoff= 300); Opiate Screen,Urine Negative ng/mL (Cutoff=300); Phencyclidine Screen,Urine Negative ng/mL (Cutoff=25)
[2021-10-30] MEDS ORDERED: Oxytocin 30 UNIT/503 ML BAG IVC ONE (11:11)
[2021-10-30] MEDS ORDERED: Oxytocin 30 UNIT/503 ML BAG IVC SCH (11:15)
[2021-10-30] MEDS ORDERED: Ropivacaine/PF 0.2% 20 ML VIAL ONE ×2 (15:09→20:32)
[2021-10-30] MEDS ORDERED: *HR* FentaNYL (PF) 100 MCG/2 ML VIAL ONE ×2 (15:09→20:29)
[2021-10-30] MEDS ORDERED: *HR* Ropivacaine/PF 0.5% 20 ML VIAL ONE (20:29)
[2021-10-30] MEDS ORDERED: Lanolin 7 G OINT...G. TP PRN (23:59)
[2021-10-30] MEDS ORDERED: Ondansetron ODT 4 MG TAB.RAPDIS SL PRN (23:59)
[2021-10-30] MEDS ORDERED: OXYTOCIN/RINGERS LACTATE 10 UNIT/166.6 ML BAG IVC ONE (23:59)
[2021-10-30] MEDS ORDERED: Benzocaine/Menthol 56 GM AEROSOL SPRAY TP PRN (23:59)
[2021-10-31] MEDS: Ibuprofen 600 MG TABLET PO SCH ×3 (01:10→18:16)
[2021-10-31] MEDS: Acetaminophen 325 MG TABLET PO SCH ×2 (07:55→15:41)
[2021-10-31] MEDS: Prenatal Vit/FA 1 EACH TABLET PO SCH (07:56)
[2021-10-31 08:35] LABS: Basophils % 0.3 %; Eosinophils % 0.3 %; Hemoglobin 11.9 g/dL (11.5-15.4); Immature Granulocytes % 0.3 % (0-4); Lymphocytes % 21.3 %; Mean Corpuscular HGB Conc 32.2 g/dL (31.6-35.5); Mean Corpuscular Hemoglobin 29.3 pg (28.0-33.3); Mean Corpuscular Volume 91.1 fL (83.0-100.0); Mean Platelet Volume 11.8 fL (9.4-12.4); Monocytes # 0.6 K/mcL (0.0-1.3); Monocytes % 6.3 %; Neutrophils # 6.7 K/mcL (1.6-8.9); Platelet Count 205 K/mcL (140-400); Red Blood Count 4.06 M/mcL (3.82-4.97); Red Cell Distribution Width 13.3 % (11.5-14.5); Segmented Neutrophils % 71.5 %; White Blood Count 9.3 K/mcL (4.3-11.1)
[2021-10-31] MEDS: Acetaminophen/Butalbital/CaffeineTABLET PO PRN (18:15)
[2021-11-01] MEDS: Ibuprofen 600 MG TABLET PO SCH ×2 (01:35→06:45)
[2021-11-01] MEDS: Acetaminophen 325 MG TABLET PO SCH ×2 (01:36→06:45)
[2021-11-01 07:00] VITALS: BP 120/85; PULSE 73; TEMP 98.7; O2SAT 96
[2021-11-01] MEDS: Acetaminophen/Butalbital/CaffeineTABLET PO PRN (07:36)
[2021-11-01] MEDS: Prenatal Vit/FA 1 EACH TABLET PO SCH (09:36)
== END 2021-11-01 11:45 | disposition home or self-care (01) | DRG 807 ==
LOC: 1NENULAB 06:05 → 1NENUOBS 23:37
PROVIDERS: ADMIT Obstetrics & Gynecology; ATTEND Obstetrics & Gynecology